=== PATIENT | female | born 1960 ===

== ENCOUNTER 2022-05-31 14:12 | Inpatient (IN) ==
[2022-05-31] MEDS ORDERED: diphenhydrAMINE CAP 25 MG CAPSULE PO PRN (17:00)
[2022-05-31] MEDS ORDERED: ALUMINUM/MAGNES/SIMETH MAX STR 30 ML UDCUP PO PRN (17:00)
[2022-05-31] MEDS ORDERED: NICOTINE 21 MG/24 HR PATCH TRANSDERM PRN (17:00)
[2022-05-31] MEDS: MORPHINE 2 MG/1 ML SYRINGE IV PRN ×2 (17:15→23:16)
[2022-05-31 17:32] LABS: Basophils % 0.1 % (0.0-0.8); Hematocrit 45.6 VOL% (35.7-47.0); Hemoglobin 13.9 GM/DL (12.0-16.0); Immature Granulocytes % 0.5 %; Immature Granulocytes Absolute 0.04 #; Lymphocytes # 0.7 10*3/uL (1.4-4.0); Lymphocytes % 7.6 % (21.3-54.2); Mean Corpuscular HGB Conc 30.5 GM/DL (32-36); Mean Corpuscular Volume 89.6 FL (87-102); Monocytes # 0.4 10*3/uL (0.11-0.8); Monocytes % 4.2 % (1.7-12.7); Neutrophils % 87.6 % (38.7-73.9); Platelet Count 237 T/CUMM (130-400); Red Blood Count 5.09 MC/CUMM (3.8-5.5); White Blood Count 8.6 T/CUMM (4-12)
[2022-05-31 17:39] LABS: Albumin 3.3 G/DL (3.4-5.0); Bilirubin,Total 0.8 MG/DL (0.20-1.00); Calcium 8.8 MG/DL (8.5-10.1); Osmolality,Calculated 277.7 MOS/KG (273-304); Potassium 4.7 MMOL/L (3.5-5.1); Total Protein 6.4 G/DL (6.4-8.2)
[2022-05-31] MEDS: LACTATED RINGERS 1,000 ML IV SCH (17:59)
[2022-05-31] MEDS: PIPERACILLIN/TAZOBACTAM 3,375 MG in SODIUM CHLORIDE 0.9% 100 ML IV SCH (18:00)
[2022-05-31] MEDS: ALBUTEROL 2.5 MG/3 ML NEB RESP TX SCH (19:09)
[2022-05-31] MEDS ORDERED: PANTOPRAZOLE 40 MG VIAL IV SCH (21:00)
[2022-05-31] MEDS: predniSONE 20 MG TABLET PO SCH (21:04)
[2022-05-31] MEDS: ENOXAPARIN 30 MG/0.3 ML SYRINGE SUBCUT SCH (21:04)
[2022-05-31] MEDS: LEVOFLOXACIN INJ 750 MG/150 ML PREMIX IV SCH (22:50)
[2022-05-31] MEDS ORDERED: CLORAZEPATE 3.75 MG TABLET PO ONE (23:30)
[2022-06-01] MEDS: ALBUTEROL 2.5 MG/3 ML NEB RESP TX SCH ×4 (00:36→21:01)
[2022-06-01] MEDS: LACTATED RINGERS 1,000 ML IV SCH ×3 (01:00→11:45)
[2022-06-01] MEDS: PIPERACILLIN/TAZOBACTAM 3,375 MG in SODIUM CHLORIDE 0.9% 100 ML IV SCH ×3 (02:01→17:45)
[2022-06-01 04:28] LABS: Basophils % 0.2 % (0.0-0.8); Hemoglobin 12.4 GM/DL (12.0-16.0); Immature Granulocytes % 0.6 %; Immature Granulocytes Absolute 0.07 #; Lymphocytes # 0.7 10*3/uL (1.4-4.0); Lymphocytes % 6.2 % (21.3-54.2); Mean Corpuscular Volume 87.5 FL (87-102); Mean Platelet Volume 9.3 FL (9.6-12.0); Monocytes # 0.6 10*3/uL (0.11-0.8); Platelet Count 187 T/CUMM (130-400); Red Blood Count 4.57 MC/CUMM (3.8-5.5); White Blood Count 11.1 T/CUMM (4-12)
[2022-06-01 04:43] LABS: Calcium 8.7 MG/DL (8.5-10.1); Potassium 4.1 MMOL/L (3.5-5.1)
[2022-06-01 04:54] LABS: Band Neutrophils 9 % (0-10); Hypochromia Slight; Lymphocytes 9 % (20-55); Microcytosis Slight; Platelet Estimate Adequate; Total Cells Counted 100
[2022-06-01] MEDS: predniSONE 20 MG TABLET PO SCH ×2 (09:30→21:08)
[2022-06-01] MEDS ORDERED: IBUPROFEN 800 MG TABLET PO PRN (10:47)
[2022-06-01] MEDS: MORPHINE 2 MG/1 ML SYRINGE IV PRN (10:49)
[2022-06-01] MEDS: METOPROLOL TARTRATE 25 MG TABLET PO SCH ×2 (11:48→21:08)
[2022-06-01] MEDS: INSULIN LISPRO 100 UNIT/ML SUBCUT SCH ×3 (13:01→21:21)
[2022-06-01] MEDS: ONDANSETRON 4 MG/2 ML VIAL IV PRN ×2 (14:31→21:24)
[2022-06-01] MEDS: SUMAtriptan 25 MG TABLET PO PRN (16:32)
[2022-06-01] MEDS: ALBUTEROL 2.5 MG/3 ML NEB RESP TX PRN (17:05)
[2022-06-01] MEDS: ENOXAPARIN 30 MG/0.3 ML SYRINGE SUBCUT SCH (21:09)
[2022-06-01] MEDS: LEVOFLOXACIN INJ 750 MG/150 ML PREMIX IV SCH (21:22)
[2022-06-02] MEDS: ALBUTEROL 2.5 MG/3 ML NEB RESP TX SCH ×2 (01:28→10:25)
[2022-06-02] MEDS: PIPERACILLIN/TAZOBACTAM 3,375 MG in SODIUM CHLORIDE 0.9% 100 ML IV SCH ×3 (01:38→16:48)
[2022-06-02 05:25] LABS: Basophils % 0.1 % (0.0-0.8); Hematocrit 42.1 VOL% (35.7-47.0); Hemoglobin 12.7 GM/DL (12.0-16.0); Immature Granulocytes % 0.9 %; Immature Granulocytes Absolute 0.09 #; Lymphocytes # 0.6 10*3/uL (1.4-4.0); Lymphocytes % 5.8 % (21.3-54.2); Mean Corpuscular HGB Conc 30.2 GM/DL (32-36); Mean Platelet Volume 9.7 FL (9.6-12.0); Monocytes # 0.5 10*3/uL (0.11-0.8); Monocytes % 4.5 % (1.7-12.7); Neutrophils % 88.7 % (38.7-73.9); Platelet Count 230 T/CUMM (130-400); Red Blood Count 4.68 MC/CUMM (3.8-5.5); Red Cell Distribution Width 14.6 % (9.3-17.3)
[2022-06-02 05:33] LABS: Calcium 9.2 MG/DL (8.5-10.1); Osmolality,Calculated 283.7 MOS/KG (273-304); Potassium 4.5 MMOL/L (3.5-5.1)
[2022-06-02] MEDS: PANTOPRAZOLE 40 MG TABLET PO SCH (09:35)
[2022-06-02] MEDS: METOPROLOL TARTRATE 25 MG TABLET PO SCH ×2 (09:35→21:55)
[2022-06-02] MEDS: predniSONE 20 MG TABLET PO SCH ×2 (09:35→21:28)
[2022-06-02] MEDS: SUMAtriptan 25 MG TABLET PO PRN (09:38)
[2022-06-02] MEDS: ALBUTEROL/IPRATROPIUM 3 ML NEB RESP TX SCH ×4 (09:45→23:49)
[2022-06-02] MEDS: INSULIN LISPRO 100 UNIT/ML SUBCUT SCH ×4 (10:01→22:04)
[2022-06-02] MEDS: ONDANSETRON 4 MG/2 ML VIAL IV PRN (10:21)
[2022-06-02] MEDS: MORPHINE 2 MG/1 ML SYRINGE IV PRN (14:55)
[2022-06-02] MEDS: VANCOMYCIN INJ 1,000 MG in SODIUM CHLORIDE 0.9% 250 ML IV SCH (17:50)
[2022-06-02] MEDS: OSELTAMIVIR 75 MG CAPSULE PO SCH (21:28)
[2022-06-02] MEDS: ENOXAPARIN 30 MG/0.3 ML SYRINGE SUBCUT SCH (21:55)
[2022-06-02] MEDS: LEVOFLOXACIN INJ 750 MG/150 ML PREMIX IV SCH (21:55)
[2022-06-03] MEDS: PIPERACILLIN/TAZOBACTAM 3,375 MG in SODIUM CHLORIDE 0.9% 100 ML IV SCH ×3 (00:38→17:32)
[2022-06-03] MEDS: ONDANSETRON 4 MG/2 ML VIAL IV PRN (00:46)
[2022-06-03] MEDS: ALBUTEROL/IPRATROPIUM 3 ML NEB RESP TX SCH ×6 (02:46→23:55)
[2022-06-03 05:10] LABS: Basophils % 0.1 % (0.0-0.8); Hemoglobin 11.8 GM/DL (12.0-16.0); Immature Granulocytes % 1.4 %; Immature Granulocytes Absolute 0.12 #; Lymphocytes # 0.6 10*3/uL (1.4-4.0); Lymphocytes % 7.3 % (21.3-54.2); Mean Corpuscular HGB Conc 30.3 GM/DL (32-36); Mean Corpuscular Volume 91.3 FL (87-102); Mean Platelet Volume 9.7 FL (9.6-12.0); Monocytes # 0.3 10*3/uL (0.11-0.8); Monocytes % 2.9 % (1.7-12.7); NRBC # 0.02 10*3/uL; Neutrophils % 88.3 % (38.7-73.9); Platelet Count 233 T/CUMM (130-400); Red Blood Count 4.27 MC/CUMM (3.8-5.5); Red Cell Distribution Width 14.6 % (9.3-17.3); White Blood Count 8.6 T/CUMM (4-12)
[2022-06-03] MEDS: VANCOMYCIN INJ 1,000 MG in SODIUM CHLORIDE 0.9% 250 ML IV SCH ×2 (05:20→17:30)
[2022-06-03 05:28] LABS: Calcium 8.9 MG/DL (8.5-10.1); Osmolality,Calculated 285.4 MOS/KG (273-304); Potassium 5.3 MMOL/L (3.5-5.1)
[2022-06-03 06:04] LABS: Free T4 (Free Thyroxine) 1.44 NG/DL (0.76-1.46)
[2022-06-03] MEDS ORDERED: SODIUM POLYSTYRENE SULFATE 15 GM/60 ML BOTTLE PO ONE (06:09)
[2022-06-03] MEDS: predniSONE 20 MG TABLET PO SCH ×2 (09:08→21:14)
[2022-06-03] MEDS: METOPROLOL TARTRATE 25 MG TABLET PO SCH ×2 (09:09→21:15)
[2022-06-03] MEDS: PANTOPRAZOLE 40 MG TABLET PO SCH (09:09)
[2022-06-03] MEDS: OSELTAMIVIR 75 MG CAPSULE PO SCH ×2 (09:09→21:15)
[2022-06-03] MEDS: INSULIN LISPRO 100 UNIT/ML SUBCUT SCH ×4 (09:53→23:27)
[2022-06-03] MEDS: ACETAMINOPHEN 325 MG TABLET PO PRN ×2 (11:15→19:44)
[2022-06-03] MEDS: ESCITALOPRAM 10 MG TABLET PO SCH (11:23)
[2022-06-03] MEDS: ENOXAPARIN 30 MG/0.3 ML SYRINGE SUBCUT SCH (21:14)
[2022-06-03] MEDS: LEVOFLOXACIN INJ 750 MG/150 ML PREMIX IV SCH (21:15)
[2022-06-04] MEDS: PIPERACILLIN/TAZOBACTAM 3,375 MG in SODIUM CHLORIDE 0.9% 100 ML IV SCH (02:00)
[2022-06-04] MEDS: ALBUTEROL/IPRATROPIUM 3 ML NEB RESP TX SCH ×6 (02:51→23:45)
[2022-06-04] MEDS: ONDANSETRON 4 MG/2 ML VIAL IV PRN ×3 (04:18→23:30)
[2022-06-04] MEDS: VANCOMYCIN INJ 1,000 MG in SODIUM CHLORIDE 0.9% 250 ML IV SCH (05:00)
[2022-06-04] MEDS: ALBUTEROL 2.5 MG/3 ML NEB RESP TX PRN (05:36)
[2022-06-04 07:09] LABS: Basophils % 0.2 % (0.0-0.8); Immature Granulocytes % 0.6 %; Immature Granulocytes Absolute 0.05 #; Lymphocytes # 0.9 10*3/uL (1.4-4.0); Lymphocytes % 10.5 % (21.3-54.2); Mean Corpuscular HGB Conc 30.5 GM/DL (32-36); Mean Corpuscular Volume 91.1 FL (87-102); Mean Platelet Volume 9.5 FL (9.6-12.0); Monocytes # 0.3 10*3/uL (0.11-0.8); Monocytes % 3.6 % (1.7-12.7); NRBC # 0.03 10*3/uL; Neutrophils % 85.1 % (38.7-73.9); Platelet Count 247 T/CUMM (130-400); Red Blood Count 4.61 MC/CUMM (3.8-5.5); Red Cell Distribution Width 14.4 % (9.3-17.3); White Blood Count 8.7 T/CUMM (4-12)
[2022-06-04 07:10] LABS: Hemoglobin 12.8 GM/DL (12.0-16.0)
[2022-06-04 07:11] LABS: Calcium 9.2 MG/DL (8.5-10.1); Osmolality,Calculated 276.5 MOS/KG (273-304); Potassium 4.6 MMOL/L (3.5-5.1)
[2022-06-04] MEDS: INSULIN LISPRO 100 UNIT/ML SUBCUT SCH ×4 (08:20→21:45)
[2022-06-04] MEDS: METOPROLOL TARTRATE 25 MG TABLET PO SCH ×2 (10:02→21:42)
[2022-06-04] MEDS: PANTOPRAZOLE 40 MG TABLET PO SCH (10:02)
[2022-06-04] MEDS: predniSONE 20 MG TABLET PO SCH (10:02)
[2022-06-04] MEDS: ESCITALOPRAM 10 MG TABLET PO SCH (10:02)
[2022-06-04] MEDS: OSELTAMIVIR 75 MG CAPSULE PO SCH ×2 (10:03→21:42)
[2022-06-04] MEDS: DILTIAZEM CD 120 MG CAPSULE PO SCH (10:03)
[2022-06-04] MEDS: DEXAMETHASONE 4 MG/1 ML VIAL IV SCH ×2 (15:40→21:46)
[2022-06-04] MEDS: ENOXAPARIN 30 MG/0.3 ML SYRINGE SUBCUT SCH (21:45)
[2022-06-04] MEDS: LEVOFLOXACIN INJ 750 MG/150 ML PREMIX IV SCH (21:46)
[2022-06-05] MEDS: ALBUTEROL/IPRATROPIUM 3 ML NEB RESP TX SCH ×6 (02:50→23:29)
[2022-06-05 04:50] LABS: Calcium 8.9 MG/DL (8.5-10.1); Osmolality,Calculated 284.4 MOS/KG (273-304); Potassium 4.7 MMOL/L (3.5-5.1)
[2022-06-05 05:06] LABS: Basophils % 0.2 % (0.0-0.8); Hematocrit 41.4 VOL% (35.7-47.0); Hemoglobin 12.6 GM/DL (12.0-16.0); Immature Granulocytes % 0.6 %; Immature Granulocytes Absolute 0.04 #; Lymphocytes # 0.9 10*3/uL (1.4-4.0); Mean Corpuscular HGB Conc 30.4 GM/DL (32-36); Mean Corpuscular Volume 89.4 FL (87-102); Mean Platelet Volume 9.5 FL (9.6-12.0); Monocytes # 0.4 10*3/uL (0.11-0.8); Monocytes % 6.5 % (1.7-12.7); Neutrophils % 78.7 % (38.7-73.9); Platelet Count 249 T/CUMM (130-400); Red Blood Count 4.63 MC/CUMM (3.8-5.5); White Blood Count 6.6 T/CUMM (4-12)
[2022-06-05] MEDS: DEXAMETHASONE 4 MG/1 ML VIAL IV SCH ×3 (05:50→22:06)
[2022-06-05] MEDS: INSULIN LISPRO 100 UNIT/ML SUBCUT SCH ×4 (07:43→22:05)
[2022-06-05] MEDS: DILTIAZEM CD 120 MG CAPSULE PO SCH (09:57)
[2022-06-05] MEDS: METOPROLOL TARTRATE 25 MG TABLET PO SCH ×2 (09:58→22:04)
[2022-06-05] MEDS: PANTOPRAZOLE 40 MG TABLET PO SCH (09:58)
[2022-06-05] MEDS: OSELTAMIVIR 75 MG CAPSULE PO SCH ×2 (09:58→22:04)
[2022-06-05] MEDS: PROMETHAZINE 25 MG TABLET PO PRN (09:58)
[2022-06-05] MEDS: ESCITALOPRAM 10 MG TABLET PO SCH (09:58)
[2022-06-05 16:41] LABS: Free Thyroxine Index 8.8 mcg/dL (4.8 - 12.7)
[2022-06-05] MEDS: ENOXAPARIN 30 MG/0.3 ML SYRINGE SUBCUT SCH (22:05)
[2022-06-05] MEDS: LEVOFLOXACIN INJ 750 MG/150 ML PREMIX IV SCH (22:06)
[2022-06-06] MEDS: INSULIN LISPRO 100 UNIT/ML SUBCUT SCH ×5 (00:26→20:47)
[2022-06-06] MEDS: ALBUTEROL/IPRATROPIUM 3 ML NEB RESP TX SCH ×5 (02:58→20:02)
[2022-06-06 04:53] LABS: Calcium 8.6 MG/DL (8.5-10.1); Osmolality,Calculated 283.5 MOS/KG (273-304); Potassium 4.6 MMOL/L (3.5-5.1)
[2022-06-06 05:43] LABS: Hematocrit 40.4 VOL% (35.7-47.0); Hemoglobin 12.4 GM/DL (12.0-16.0); Immature Granulocytes % 0.8 %; Immature Granulocytes Absolute 0.07 #; Lymphocytes # 0.9 10*3/uL (1.4-4.0); Mean Corpuscular HGB Conc 30.7 GM/DL (32-36); Mean Corpuscular Volume 88.6 FL (87-102); Mean Platelet Volume 9.5 FL (9.6-12.0); Monocytes # 0.4 10*3/uL (0.11-0.8); Monocytes % 4.1 % (1.7-12.7); Neutrophils % 84.1 % (38.7-73.9); Platelet Count 263 T/CUMM (130-400); Red Blood Count 4.56 MC/CUMM (3.8-5.5); Red Cell Distribution Width 13.8 % (9.3-17.3); White Blood Count 8.5 T/CUMM (4-12)
[2022-06-06] MEDS: DEXAMETHASONE 4 MG/1 ML VIAL IV SCH ×2 (05:45→15:36)
[2022-06-06] MEDS: METOPROLOL TARTRATE 25 MG TABLET PO SCH ×2 (09:47→20:46)
[2022-06-06] MEDS: ESCITALOPRAM 10 MG TABLET PO SCH (09:47)
[2022-06-06] MEDS: DILTIAZEM CD 120 MG CAPSULE PO SCH (09:47)
[2022-06-06] MEDS: OSELTAMIVIR 75 MG CAPSULE PO SCH ×2 (09:47→20:47)
[2022-06-06] MEDS: PANTOPRAZOLE 40 MG TABLET PO SCH (09:49)
[2022-06-06] MEDS: ENOXAPARIN 30 MG/0.3 ML SYRINGE SUBCUT SCH (20:47)
[2022-06-06] MEDS: PROMETHAZINE 25 MG TABLET PO PRN (20:53)
[2022-06-06] MEDS: LEVOFLOXACIN INJ 750 MG/150 ML PREMIX IV SCH (21:00)
[2022-06-07] MEDS: ALBUTEROL/IPRATROPIUM 3 ML NEB RESP TX SCH ×6 (00:38→20:27)
[2022-06-07] MEDS ORDERED: DEXAMETHASONE 4 MG/1 ML VIAL IV SCH (03:30)
[2022-06-07 05:02] LABS: Basophils % 0.1 % (0.0-0.8); Hematocrit 41.1 VOL% (35.7-47.0); Hemoglobin 12.7 GM/DL (12.0-16.0); Immature Granulocytes % 1.5 %; Immature Granulocytes Absolute 0.17 #; Lymphocytes # 1.7 10*3/uL (1.4-4.0); Lymphocytes % 14.3 % (21.3-54.2); Mean Corpuscular HGB Conc 30.9 GM/DL (32-36); Mean Corpuscular Volume 88.6 FL (87-102); Mean Platelet Volume 9.3 FL (9.6-12.0); Monocytes # 0.8 10*3/uL (0.11-0.8); Monocytes % 6.6 % (1.7-12.7); Neutrophils % 77.5 % (38.7-73.9); Platelet Count 278 T/CUMM (130-400); Red Blood Count 4.64 MC/CUMM (3.8-5.5); Red Cell Distribution Width 13.5 % (9.3-17.3); White Blood Count 11.6 T/CUMM (4-12)
[2022-06-07 05:21] LABS: Calcium 8.4 MG/DL (8.5-10.1); Osmolality,Calculated 282.4 MOS/KG (273-304); Potassium 4.3 MMOL/L (3.5-5.1)
[2022-06-07] MEDS: INSULIN LISPRO 100 UNIT/ML SUBCUT SCH ×4 (07:40→20:09)
[2022-06-07] MEDS: METOPROLOL TARTRATE 25 MG TABLET PO SCH ×2 (09:24→20:08)
[2022-06-07] MEDS: ESCITALOPRAM 10 MG TABLET PO SCH (09:24)
[2022-06-07] MEDS: OSELTAMIVIR 75 MG CAPSULE PO SCH (09:24)
[2022-06-07] MEDS: PANTOPRAZOLE 40 MG TABLET PO SCH (09:24)
[2022-06-07] MEDS: DILTIAZEM CD 120 MG CAPSULE PO SCH (09:24)
[2022-06-07] MEDS ORDERED: LEVOFLOXACIN 500 MG TABLET PO ONE (13:30)
[2022-06-07] MEDS: DEXAMETHASONE 4 MG/1 ML VIAL IV SCH (17:00)
[2022-06-07] MEDS: PROMETHAZINE 25 MG TABLET PO PRN (20:08)
[2022-06-07] MEDS: ENOXAPARIN 30 MG/0.3 ML SYRINGE SUBCUT SCH (20:09)
[2022-06-08] MEDS: ALBUTEROL/IPRATROPIUM 3 ML NEB RESP TX SCH ×7 (00:01→23:00)
[2022-06-08] MEDS: DEXAMETHASONE 4 MG/1 ML VIAL IV SCH ×3 (04:45→21:39)
[2022-06-08] MEDS: ESCITALOPRAM 10 MG TABLET PO SCH (09:35)
[2022-06-08] MEDS: LEVOFLOXACIN 500 MG TABLET PO SCH (09:35)
[2022-06-08] MEDS: PANTOPRAZOLE 40 MG TABLET PO SCH (09:35)
[2022-06-08] MEDS: DILTIAZEM CD 120 MG CAPSULE PO SCH (09:35)
[2022-06-08] MEDS: METOPROLOL TARTRATE 25 MG TABLET PO SCH ×2 (09:35→21:36)
[2022-06-08] MEDS: INSULIN LISPRO 100 UNIT/ML SUBCUT SCH ×3 (10:58→20:09)
[2022-06-08] MEDS: ENOXAPARIN 30 MG/0.3 ML SYRINGE SUBCUT SCH (21:36)
[2022-06-08] MEDS: PROMETHAZINE 25 MG TABLET PO PRN (23:17)
[2022-06-09] MEDS: ALBUTEROL/IPRATROPIUM 3 ML NEB RESP TX SCH ×3 (03:55→10:57)
[2022-06-09 06:00] LABS: Basophils % 0.1 % (0.0-0.8); Eosinophils % 0.1 % (0.00-10.9); Immature Granulocytes % 0.8 %; Immature Granulocytes Absolute 0.09 #; Lymphocytes # 1.6 10*3/uL (1.4-4.0); Lymphocytes % 13.9 % (21.3-54.2); Mean Corpuscular HGB Conc 30.2 GM/DL (32-36); Mean Platelet Volume 9.4 FL (9.6-12.0); Monocytes # 0.5 10*3/uL (0.11-0.8); Monocytes % 4.2 % (1.7-12.7); Neutrophils % 80.9 % (38.7-73.9); Platelet Count 324 T/CUMM (130-400); Red Blood Count 4.83 MC/CUMM (3.8-5.5); Red Cell Distribution Width 14.1 % (9.3-17.3); White Blood Count 11.7 T/CUMM (4-12)
[2022-06-09 06:10] LABS: Calcium 8.4 MG/DL (8.5-10.1); Osmolality,Calculated 286.1 MOS/KG (273-304); Potassium 4.1 MMOL/L (3.5-5.1)
[2022-06-09 08:00] VITALS: BP 147/90
[2022-06-09] MEDS: DILTIAZEM CD 120 MG CAPSULE PO SCH (09:08)
[2022-06-09] MEDS: METOPROLOL TARTRATE 25 MG TABLET PO SCH (09:09)
[2022-06-09] MEDS: LEVOFLOXACIN 500 MG TABLET PO SCH (09:09)
[2022-06-09] MEDS: PANTOPRAZOLE 40 MG TABLET PO SCH (09:10)
[2022-06-09] MEDS: ESCITALOPRAM 10 MG TABLET PO SCH (09:10)
[2022-06-09] MEDS: INSULIN LISPRO 100 UNIT/ML SUBCUT SCH (09:11)
[2022-06-09] MEDS: DEXAMETHASONE 4 MG/1 ML VIAL IV SCH (09:14)
== END 2022-06-09 12:12 | disposition home or self-care (01) | DRG 177 ==
LOC: N.ICU → SUATTDRO 16:18 → N.3E 06-01 13:25 → SUATTDRO 06-01 15:13
PROVIDERS: ADMIT Internal Medicine; ATTEND Hospitalist